=== PATIENT | male | born 1960 | race Caucasian/White ===

== ENCOUNTER 2019-05-28 11:38 | Inpatient (IN) | payer MEDICAID ==
[~2019-05-28] VITALS: Ht 172.7 cm; Wt 57.8 kg
[~2019-05-28 11:38] MED LIST: ASPI-556 PO; ATEN25TA PO; FLUP10 PO; PALI234D IM; TRIH5TAB2 PO
[2019-05-28] MEDS ORDERED: TRIH5TAB2 PO (14:10)
[2019-05-28] MEDS ORDERED: DIVA-76 PO (14:10)
[2019-05-28 14:36] VITALS: BP 129/90
[2019-05-28 16:28] VITALS: BP 130/86
[2019-05-28] MEDS: LORazepam 1 MG TABLET PO PRN ×2 (16:31→21:01)
[2019-05-28] MEDS: HALOPERIDOL 5 MG TABLET PO PRN ×2 (16:31→21:01)
[2019-05-28] MEDS ORDERED: PNEUMOCOCCAL VACCINE POLYVALENT 0.5 ML VIAL [PPSV23] IM ONE (19:30)
[2019-05-28] MEDS ORDERED: INFLUENZA VIRUS VACCINE QVS 2019-20 (3YR+)/PF 60 MCG/0.5 ML SYRINGE IM ONE (19:30)
[2019-05-28] MEDS ORDERED: ONDANSETRON HCL 4 MG TABLET PO PRN (21:15)
[2019-05-28] MEDS ORDERED: LOPERAMIDE HCL 2 MG CAPSULE PO PRN (21:15)
[2019-05-28] MEDS ORDERED: NICOTINE 14 MG/24 HOUR PATCH TD PRN (21:15)
[2019-05-28] MEDS ORDERED: CloNIDine HCL 0.1 MG TABLET PO PRN (21:15)
[2019-05-28] MEDS ORDERED: PETROLATUM,WHITE 28 GM JELLY TP PRN (21:15)
[2019-05-28] MEDS ORDERED: MAGNESIUM HYDROXIDE SUSPENSION 30 ML UDCUP PO PRN (21:15)
[2019-05-28] MEDS ORDERED: ACETAMINOPHEN 325 MG TABLET PO PRN (21:15)
[2019-05-28] MEDS ORDERED: MAG HYDROX/AL HYDROX/SIMETH ES 30 ML SUSPENSION UDCUP PO PRN (21:15)
[2019-05-28] MEDS ORDERED: GuaiFENesin/D-METHORPHAN [SUGAR-FREE] 200-20MG/10 ML SYRUP UDCUP PO PRN (21:15)
[2019-05-28] MEDS ORDERED: DOCUSATE SODIUM 100 MG CAPSULE PO PRN (21:15)
[2019-05-28] MEDS ORDERED: ALBUTEROL SULFATE HFA 90 MCG/PUFF 8 GM INHALER IH PRN (21:15)
[2019-05-29 05:33] VITALS: BP 108/65
[2019-05-29] MEDS: HALOPERIDOL 5 MG TABLET PO PRN ×2 (06:44→10:44)
[2019-05-29] MEDS: LORazepam 1 MG TABLET PO PRN ×4 (06:44→20:46)
[2019-05-29 08:41] VITALS: BP 117/77
[2019-05-29] MEDS: FluPHENAZine HCL 5 MG TABLET PO SCH ×2 (12:22→16:22)
[2019-05-29] MEDS: TRIHEXYPHENIDYL HCL 5 MG TABLET PO SCH ×2 (12:22→16:22)
[2019-05-29 16:10] VITALS: BP 116/68
[2019-05-29] MEDS: DIVALPROEX SODIUM 250 MG ER TABLET PO SCH (16:22)
[2019-05-29] MEDS: NICOTINE POLACRILEX 2 MG LOZENGE PO PRN ×2 (16:23→18:43)
[2019-05-29] MEDS: ZOLPIDEM TARTRATE 10 MG TABLET PO PRN (20:46)
[2019-05-30 00:31] VITALS: BP 122/78
[2019-05-30] MEDS: LORazepam 1 MG TABLET PO PRN ×4 (02:38→20:52)
[2019-05-30] MEDS: DIVALPROEX SODIUM 250 MG ER TABLET PO SCH ×2 (08:08→16:24)
[2019-05-30] MEDS: NICOTINE POLACRILEX 2 MG LOZENGE PO PRN ×2 (08:08→16:24)
[2019-05-30] MEDS: TRIHEXYPHENIDYL HCL 5 MG TABLET PO SCH ×3 (08:08→16:24)
[2019-05-30] MEDS: FluPHENAZine HCL 5 MG TABLET PO SCH ×3 (08:08→16:24)
[2019-05-30 08:43] VITALS: BP 102/73
[2019-05-30 16:00] VITALS: BP 113/78
[2019-05-30] MEDS: HALOPERIDOL 5 MG TABLET PO PRN ×2 (16:03→20:52)
[2019-05-30] MEDS: ZOLPIDEM TARTRATE 10 MG TABLET PO PRN (20:52)
[2019-05-31 06:44] VITALS: BP 126/79
[2019-05-31 06:45] VITALS: BP 126/81
[2019-05-31] MEDS: LORazepam 1 MG TABLET PO PRN ×2 (06:47→21:16)
[2019-05-31] MEDS: HALOPERIDOL 5 MG TABLET PO PRN ×2 (06:47→21:16)
[2019-05-31] MEDS: NICOTINE POLACRILEX 2 MG LOZENGE PO PRN ×2 (07:53→21:17)
[2019-05-31 08:00] VITALS: BP 102/70
[2019-05-31] MEDS: DIVALPROEX SODIUM 250 MG ER TABLET PO SCH ×2 (08:52→17:15)
[2019-05-31] MEDS: TRIHEXYPHENIDYL HCL 5 MG TABLET PO SCH ×3 (08:52→17:14)
[2019-05-31] MEDS: FluPHENAZine HCL 5 MG TABLET PO SCH ×3 (08:52→17:14)
[2019-05-31 16:09] VITALS: BP 119/83
[2019-06-01 04:38] VITALS: BP 118/79
[2019-06-01] MEDS: LORazepam 1 MG TABLET PO PRN (05:32)
[2019-06-01 08:00] VITALS: BP 80/60
[2019-06-01] MEDS: FluPHENAZine HCL 5 MG TABLET PO SCH (08:45)
[2019-06-01] MEDS: TRIHEXYPHENIDYL HCL 5 MG TABLET PO SCH ×3 (08:46→17:12)
[2019-06-01] MEDS: DIVALPROEX SODIUM 250 MG ER TABLET PO SCH ×2 (08:46→17:12)
[2019-06-01] MEDS: FluPHENAZine HCL 10 MG TABLET PO SCH ×2 (14:54→17:13)
[2019-06-01 16:09] VITALS: BP 113/71
[2019-06-01] MEDS: NICOTINE POLACRILEX 2 MG LOZENGE PO PRN (20:26)
[2019-06-01] MEDS: ZOLPIDEM TARTRATE 10 MG TABLET PO PRN (20:26)
[2019-06-02 04:43] VITALS: BP 109/78
[2019-06-02] MEDS: LORazepam 1 MG TABLET PO PRN ×2 (04:50→12:55)
[2019-06-02] MEDS: DIVALPROEX SODIUM 250 MG ER TABLET PO SCH ×2 (08:31→16:19)
[2019-06-02] MEDS: TRIHEXYPHENIDYL HCL 5 MG TABLET PO SCH ×3 (08:31→16:20)
[2019-06-02] MEDS: HALOPERIDOL 5 MG TABLET PO PRN (08:31)
[2019-06-02] MEDS: FluPHENAZine HCL 10 MG TABLET PO SCH ×3 (08:31→16:19)
[2019-06-02 08:43] VITALS: BP 101/65
[2019-06-02 16:17] VITALS: BP 105/58
[2019-06-02] MEDS: ZOLPIDEM TARTRATE 10 MG TABLET PO PRN (20:30)
[2019-06-03 00:32] VITALS: BP 97/67
[2019-06-03] MEDS: NICOTINE POLACRILEX 2 MG LOZENGE PO PRN ×3 (01:06→17:57)
[2019-06-03] MEDS: LORazepam 1 MG TABLET PO PRN ×2 (05:02→16:05)
[2019-06-03 08:31] VITALS: BP 112/71
[2019-06-03] MEDS: FluPHENAZine HCL 10 MG TABLET PO SCH ×3 (08:39→16:05)
[2019-06-03] MEDS: TRIHEXYPHENIDYL HCL 5 MG TABLET PO SCH ×3 (08:39→16:05)
[2019-06-03] MEDS: DIVALPROEX SODIUM 250 MG ER TABLET PO SCH ×2 (08:40→16:05)
[2019-06-03 16:20] VITALS: BP 115/77
[2019-06-03] MEDS: HALOPERIDOL 5 MG TABLET PO PRN (17:05)
[2019-06-04 03:51] VITALS: BP 105/65
[2019-06-04] MEDS: IBUPROFEN 400 MG TABLET PO PRN (03:58)
[2019-06-04] MEDS: LORazepam 1 MG TABLET PO PRN ×2 (03:58→16:29)
[2019-06-04 08:04] VITALS: BP 110/75
[2019-06-04 08:27] LABS: BASOPHILS % (AUTO) 0.6 % (0.0-2.0); EOSINOPHILS % (AUTO) 5.3 % (1.0-6.0); HEMATOCRIT 35.6 % (41-53); HEMOGLOBIN 12.6 g/dL (13.5-17.5); LYMPHOCYTES # (AUTO) 1.5 K/uL (1.0-4.8); LYMPHOCYTES % (AUTO) 33.3 % (22.0-44.0); MEAN CORPUSCULAR HEMOGLOBIN 36.7 pg (26.0-34.0); MEAN CORPUSCULAR HGB CONC 35.4 G/dL (31.0-37.0); MEAN CORPUSCULAR VOLUME 104 fL (80-100); MONOCYTES # (AUTO) 0.5 K/uL (0.1-1.0); MONOCYTES % (AUTO) 11.2 % (2.0-9.0); NEUTROPHILS # (AUTO) 2.2 K/uL (1.8-7.7); NEUTROPHILS % (AUTO) 49.6 % (40.0-70.0); PLATELET COUNT (AUTO) 285 K/uL (150-450); RED BLOOD CELL COUNT(AUTO) 3.42 MIL/uL (4.50-5.90); RED CELL DISTRIBUTION WIDTH 13.7 % (11.5-14.5)
[2019-06-04] MEDS: DIVALPROEX SODIUM 250 MG ER TABLET PO SCH ×2 (08:49→16:29)
[2019-06-04] MEDS: FluPHENAZine HCL 10 MG TABLET PO SCH ×3 (08:49→16:29)
[2019-06-04] MEDS: TRIHEXYPHENIDYL HCL 5 MG TABLET PO SCH ×3 (08:49→16:29)
[2019-06-04] MEDS: NICOTINE POLACRILEX 2 MG LOZENGE PO PRN ×2 (09:37→18:18)
[2019-06-04 15:22] LABS: ALANINE AMINOTRANSFERASE 25 U/L (12-78); ALBUMIN 3.8 g/dL (3.4-5.0); ALKALINE PHOSPHATASE 62 U/L (46-116); ANION GAP 8 mmol/L (8-16); ASPARTATE AMINOTRANSFERASE 25 U/L (15-37); BILIRUBIN,TOTAL 0.3 mg/dL (0.1-1.0); CALCIUM, TOTAL 8.3 mg/dL (8.8-10.5); CARBON DIOXIDE 26 mmol/L (22-29); CHLORIDE 90 mmol/L (98-107); CREATININE 0.77 mg/dL (0.60-1.30); GLOMERULAR FILTR. RATE CALC > 60 mL/min (>60); GLUCOSE,RANDOM 83 mg/dL (70-110); POTASSIUM 4.9 mmol/L (3.5-5.1); TOTAL PROTEIN, SERUM 6.9 g/dL (6.4-8.2); UREA NITROGEN, BLOOD 11 mg/dL (7-18)
[2019-06-04 15:46] LABS: SODIUM SERUM 124 mmol/L (136-145)
[2019-06-04 16:13] VITALS: BP 127/77
[2019-06-04] MEDS: SODIUM CHLORIDE 1 GM TABLET PO SCH (16:30)
[2019-06-05 05:46] VITALS: BP 104/69
[2019-06-05] MEDS: LORazepam 1 MG TABLET PO PRN ×2 (06:34→13:29)
[2019-06-05] MEDS: IBUPROFEN 400 MG TABLET PO PRN ×2 (06:35→21:22)
[2019-06-05 08:19] VITALS: BP 113/60
[2019-06-05] MEDS: DIVALPROEX SODIUM 250 MG ER TABLET PO SCH ×2 (08:53→16:08)
[2019-06-05] MEDS: SODIUM CHLORIDE 1 GM TABLET PO SCH ×3 (08:53→16:08)
[2019-06-05] MEDS: TRIHEXYPHENIDYL HCL 5 MG TABLET PO SCH ×3 (08:53→16:08)
[2019-06-05] MEDS: FluPHENAZine HCL 10 MG TABLET PO SCH ×3 (08:53→16:08)
[2019-06-05] MEDS ORDERED: FluPHENAZine DECANOATE 25 MG/ML IM ONE (12:15)
[2019-06-05] MEDS: HALOPERIDOL 5 MG TABLET PO PRN (13:29)
[2019-06-05 16:28] VITALS: BP 122/74
[2019-06-05] MEDS: ZOLPIDEM TARTRATE 10 MG TABLET PO PRN (20:51)
[2019-06-05] MEDS: NICOTINE POLACRILEX 2 MG LOZENGE PO PRN (20:51)
[2019-06-06 02:51] VITALS: BP 102/67
[2019-06-06] MEDS: LORazepam 1 MG TABLET PO PRN (06:25)
[2019-06-06] MEDS: IBUPROFEN 400 MG TABLET PO PRN (06:25)
[2019-06-06 08:00] LABS: BASOPHILS % (AUTO) 0.4 % (0.0-2.0); EOSINOPHILS % (AUTO) 1.8 % (1.0-6.0); HEMOGLOBIN 11.8 g/dL (13.5-17.5); LYMPHOCYTES # (AUTO) 1.5 K/uL (1.0-4.8); LYMPHOCYTES % (AUTO) 19.8 % (22.0-44.0); MEAN CORPUSCULAR HEMOGLOBIN 36.1 pg (26.0-34.0); MEAN CORPUSCULAR HGB CONC 34.8 G/dL (31.0-37.0); MEAN CORPUSCULAR VOLUME 104 fL (80-100); MONOCYTES # (AUTO) 0.7 K/uL (0.1-1.0); MONOCYTES % (AUTO) 9.4 % (2.0-9.0); NEUTROPHILS # (AUTO) 5.1 K/uL (1.8-7.7); NEUTROPHILS % (AUTO) 68.6 % (40.0-70.0); PLATELET COUNT (AUTO) 287 K/uL (150-450); RED BLOOD CELL COUNT(AUTO) 3.27 MIL/uL (4.50-5.90); RED CELL DISTRIBUTION WIDTH 13.4 % (11.5-14.5)
[2019-06-06 08:09] VITALS: BP 106/72
[2019-06-06] MEDS: SODIUM CHLORIDE 1 GM TABLET PO SCH ×3 (08:13→17:00)
[2019-06-06] MEDS: DIVALPROEX SODIUM 250 MG ER TABLET PO SCH (08:13)
[2019-06-06] MEDS: TRIHEXYPHENIDYL HCL 5 MG TABLET PO SCH ×3 (08:13→17:00)
[2019-06-06] MEDS: FluPHENAZine HCL 10 MG TABLET PO SCH ×3 (08:13→17:00)
[2019-06-06 08:19] LABS: ALANINE AMINOTRANSFERASE 23 U/L (12-78); ALBUMIN 3.6 g/dL (3.4-5.0); ALKALINE PHOSPHATASE 53 U/L (46-116); ASPARTATE AMINOTRANSFERASE 16 U/L (15-37); BILIRUBIN,TOTAL 0.3 mg/dL (0.1-1.0); CALCIUM, TOTAL 8.2 mg/dL (8.8-10.5); CARBON DIOXIDE 29 mmol/L (22-29); CHLORIDE 87 mmol/L (98-107); CREATININE 0.71 mg/dL (0.60-1.30); GLOMERULAR FILTR. RATE CALC > 60 mL/min (>60); GLUCOSE,RANDOM 106 mg/dL (70-110); POTASSIUM 4.3 mmol/L (3.5-5.1); TOTAL PROTEIN, SERUM 6.6 g/dL (6.4-8.2); UREA NITROGEN, BLOOD 10 mg/dL (7-18); VALPROIC ACID 22 mcg/mL (50-100)
[2019-06-06 08:36] LABS: ANION GAP 4 mmol/L (8-16); SODIUM SERUM 120 mmol/L (136-145)
[2019-06-06] MEDS ORDERED: FLUP10 PO (10:39)
[2019-06-06] MEDS ORDERED: NACL1 PO (10:39)
[2019-06-06] MEDS ORDERED: HALO5TAB2 PO (10:39)
[2019-06-06] MEDS ORDERED: LORA-1000 PO (10:39)
[2019-06-06] MEDS ORDERED: NICO2GUM PO (10:39)
[2019-06-06] MEDS ORDERED: CLON0.2T2 PO (10:39)
[2019-06-06] MEDS ORDERED: ZOLP10TA7 PO (10:39)
== END 2019-06-06 19:56 | disposition short-term general hospital (02) | DRG 750 ==
LOC: B3A 14:34
PROVIDERS: ADMIT Psychiatry & Neurology Psychiatry; ATTEND Psychiatry & Neurology Psychiatry
DX: F20.0 Paranoid schizophrenia (principal); E87.1 Hypo-osmolality and hyponatremia; I10 Essential (primary) hypertension; F19.10 Other psychoactive substance abuse, uncomplicated; J44.9 Chronic obstructive pulmonary disease, unspecified; K21.9 Gastro-esophageal reflux disease without esophagitis; Z91.19 Patient's noncompliance with other medical treatment and regimen; Z28.21 Immunization not carried out because of patient refusal; Z79.899 Other long term (current) drug therapy; Z71.51 Drug abuse counseling and surveillance of drug abuser
CPT/HCPCS: J2680

== ENCOUNTER 2019-06-06 09:49 | Inpatient (IN) | payer MEDICAID, OTHER ==
[~2019-06-06] VITALS: Ht 182.9 cm; Wt 60.9 kg
[~2019-06-06 09:49] MED LIST changes: -ASPI-556 PO; -ATEN25TA PO; +DIVA-76 PO; -FLUP10 PO
[2019-06-06] MEDS ORDERED: FLUP10 PO (10:39)
[2019-06-06] MEDS ORDERED: NACL1 PO (10:39)
[2019-06-06] MEDS ORDERED: LORA-1000 PO (10:39)
[2019-06-06] MEDS ORDERED: NICO2GUM PO (10:39)
[2019-06-06] MEDS ORDERED: ZOLP10TA7 PO (10:39)
[2019-06-06] MEDS ORDERED: HALO5TAB2 PO (10:39)
[2019-06-06] MEDS ORDERED: CLON0.2T2 PO (10:39)
[2019-06-06 10:48] LABS: BASOPHILS % (AUTO) 0.6 % (0.0-2.0); EOSINOPHILS % (AUTO) 1.7 % (1.0-6.0); HEMATOCRIT 32.5 % (41-53); HEMOGLOBIN 11.5 g/dL (13.5-17.5); LYMPHOCYTES # (AUTO) 1.8 K/uL (1.0-4.8); LYMPHOCYTES % (AUTO) 30.1 % (22.0-44.0); MEAN CORPUSCULAR HEMOGLOBIN 36.6 pg (26.0-34.0); MEAN CORPUSCULAR HGB CONC 35.4 G/dL (31.0-37.0); MEAN CORPUSCULAR VOLUME 103 fL (80-100); MONOCYTES # (AUTO) 0.5 K/uL (0.1-1.0); MONOCYTES % (AUTO) 7.8 % (2.0-9.0); NEUTROPHILS # (AUTO) 3.5 K/uL (1.8-7.7); NEUTROPHILS % (AUTO) 59.8 % (40.0-70.0); PLATELET COUNT (AUTO) 279 K/uL (150-450); RED BLOOD CELL COUNT(AUTO) 3.14 MIL/uL (4.50-5.90); RED CELL DISTRIBUTION WIDTH 13.5 % (11.5-14.5)
[2019-06-06 11:11] LABS: ALANINE AMINOTRANSFERASE 27 U/L (12-78); ALBUMIN 3.3 g/dL (3.4-5.0); ALKALINE PHOSPHATASE 61 U/L (46-116); ANION GAP 4 mmol/L (8-16); ASPARTATE AMINOTRANSFERASE 17 U/L (15-37); BILIRUBIN,TOTAL 0.3 mg/dL (0.1-1.0); CALCIUM, TOTAL 8.5 mg/dL (8.8-10.5); CARBON DIOXIDE 29 mmol/L (22-29); CHLORIDE 90 mmol/L (98-107); CREATININE 0.74 mg/dL (0.60-1.30); FREE T4 (FREE THYROXINE) 1.02 ng/dL (0.76-1.46); GLOMERULAR FILTR. RATE CALC > 60 mL/min (>60); GLUCOSE,RANDOM 102 mg/dL (70-110); POTASSIUM 4.1 mmol/L (3.5-5.1); THYROID STIMULATING HORMONE 1.01 uIU/mL (0.36-3.74); TOTAL PROTEIN, SERUM 6.1 g/dL (6.4-8.2); UREA NITROGEN, BLOOD 10 mg/dL (7-18); VALPROIC ACID 24 mcg/mL (50-100)
[2019-06-06 11:13] LABS: SODIUM SERUM 123 mmol/L (136-145)
[2019-06-06 11:37] LABS: APPEARANCE,URINE CLEAR (CLEAR); BILIRUBIN,URINE NEGATIVE (NEGATIVE); GLUCOSE, URINE (UA) NEGATIVE (NEGATIVE); KETONES,URINE NEGATIVE (NEGATIVE); LEUKOCYTE ESTERASE ,URINE NEGATIVE (NEGATIVE); NITRATE,URINE NEGATIVE (NEGATIVE); OCCULT BLOOD,URINE NEGATIVE (NEGATIVE); PROTEIN,URINE NEGATIVE (NEGATIVE); UROBILINOGEN,URINE 0.2 mg/dL (<=1.0)
[2019-06-06 11:37] LABS: OSMOLALITY 261 mOS/kg (270-310)
[2019-06-06 11:43] LABS: AMPHET/METH SCREEN,URINE NEGATIVE (NEGATIVE); BARBITURATE SCREEN, URINE NEGATIVE (NEGATIVE); BENZODIAZEPINES SCREEN,URINE NEGATIVE (NEGATIVE); CANNABINOID SCREEN,URINE NEGATIVE (NEGATIVE); COCAINE SCREEN,URINE NEGATIVE (NEGATIVE); METHADONE SCREEN, URINE NEGATIVE (NEGATIVE); OPIATE SCREEN,URINE NEGATIVE (NEGATIVE)
[2019-06-06 11:44] LABS: PHENCYCLIDINE SCREEN,URINE NEGATIVE (NEGATIVE)
[2019-06-06 11:53] LABS: BACTERIA,URINE None Seen /HPF (None Seen); RBC,URINE None Seen /HPF (0-2); WBC,URINE None Seen /HPF (0-5)
[2019-06-06] MEDS ORDERED: 0.9% SODIUM CHLORIDE 10 ML SYRINGE IVP PRN (12:30)
[2019-06-06] MEDS ORDERED: ACETAMINOPHEN 325 MG TABLET PO PRN ×2 (12:30)
[2019-06-06] MEDS ORDERED: ALBUTEROL SULFATE 2.5 MG/0.5 ML NEB SOLUTION NEB PRN (12:45)
[2019-06-06 13:25] LABS: SODIUM,URINE RANDOM 8 mmol/l (20-110)
[2019-06-06 13:33] LABS: OSMOLALITY,URINE 73 mOS/kg (50-1200)
[2019-06-06] MEDS: NICOTINE 21 MG/24 HOUR PATCH TD SCH (14:35)
[2019-06-06] MEDS: FluPHENAZine HCL 10 MG TABLET PO SCH ×2 (15:30→21:26)
[2019-06-06] MEDS: TRIHEXYPHENIDYL HCL 5 MG TABLET PO SCH ×2 (15:30→21:26)
[2019-06-06] MEDS ORDERED: DEXTROSE 5%-WATER 1,000 ML IV ONE (16:15)
[2019-06-06 19:43] VITALS: BP 93/62
[2019-06-06] MEDS ORDERED: INFLUENZA VIRUS VACCINE QVS 2019-20 (3YR+)/PF 60 MCG/0.5 ML SYRINGE IM ONE (20:45)
[2019-06-06] MEDS: HEPARIN SODIUM,PORCINE 5,000 UNITS/ML VIAL SQ SCH (21:00)
[2019-06-06] MEDS: DOCUSATE SODIUM 100 MG CAPSULE PO SCH (21:25)
[2019-06-06] MEDS: LORazepam 1 MG TABLET PO PRN (21:25)
[2019-06-06 23:50] VITALS: BP 102/68
[2019-06-07 04:30] VITALS: BP 105/78
[2019-06-07 07:54] VITALS: BP 106/74
[2019-06-07] MEDS ORDERED: DEXTROSE 5%-WATER 1,000 ML IV SCH (08:24)
[2019-06-07] MEDS: FAMOTIDINE 20 MG TABLET PO SCH (08:48)
[2019-06-07] MEDS: HEPARIN SODIUM,PORCINE 5,000 UNITS/ML VIAL SQ SCH ×2 (08:48→20:23)
[2019-06-07] MEDS: TRIHEXYPHENIDYL HCL 5 MG TABLET PO SCH ×2 (08:48→20:29)
[2019-06-07] MEDS: LORazepam 1 MG TABLET PO PRN (08:48)
[2019-06-07] MEDS: DOCUSATE SODIUM 100 MG CAPSULE PO SCH ×2 (08:49→20:23)
[2019-06-07] MEDS: FluPHENAZine HCL 10 MG TABLET PO SCH ×2 (08:49→20:28)
[2019-06-07] MEDS: NICOTINE 21 MG/24 HOUR PATCH TD SCH (09:00)
[2019-06-07 11:29] VITALS: BP 110/76
[2019-06-07 15:11] VITALS: BP 100/78
[2019-06-07 20:00] VITALS: BP 132/90
[2019-06-08 04:00] VITALS: BP 106/76
[2019-06-08 07:22] VITALS: BP 117/86
[2019-06-08] MEDS: TRIHEXYPHENIDYL HCL 5 MG TABLET PO SCH ×3 (09:46→20:46)
[2019-06-08] MEDS: DOCUSATE SODIUM 100 MG CAPSULE PO SCH ×2 (09:46→20:46)
[2019-06-08] MEDS: FAMOTIDINE 20 MG TABLET PO SCH (09:46)
[2019-06-08] MEDS: FluPHENAZine HCL 10 MG TABLET PO SCH ×3 (09:47→20:46)
[2019-06-08] MEDS: HEPARIN SODIUM,PORCINE 5,000 UNITS/ML VIAL SQ SCH ×2 (09:48→20:46)
[2019-06-08] MEDS: NICOTINE 21 MG/24 HOUR PATCH TD SCH (09:49)
[2019-06-08 11:10] VITALS: BP 117/81
[2019-06-08 15:10] VITALS: BP_SYST 120; BP_SYST 154; BP_DIAS 70; BP_DIAS 76
[2019-06-08] MEDS: LORazepam 1 MG TABLET PO PRN (16:02)
[2019-06-08 20:00] VITALS: BP 116/72
[2019-06-08 23:18] VITALS: BP 120/82
[2019-06-09 04:32] VITALS: BP 112/81
[2019-06-09] MEDS: DOCUSATE SODIUM 100 MG CAPSULE PO SCH (08:14)
[2019-06-09] MEDS: FluPHENAZine HCL 10 MG TABLET PO SCH ×2 (08:14→16:21)
[2019-06-09] MEDS: TRIHEXYPHENIDYL HCL 5 MG TABLET PO SCH ×2 (08:14→16:20)
[2019-06-09] MEDS: FAMOTIDINE 20 MG TABLET PO SCH (08:14)
[2019-06-09] MEDS: NICOTINE 21 MG/24 HOUR PATCH TD SCH (08:15)
[2019-06-09 08:28] VITALS: BP 95/55
[2019-06-09] MEDS: HEPARIN SODIUM,PORCINE 5,000 UNITS/ML VIAL SQ SCH (09:00)
[2019-06-09 11:54] VITALS: BP 122/79
[2019-06-09] MEDS ORDERED: TRIH5TAB2 PO (16:27)
[2019-06-09 16:35] VITALS: BP 142/93
== END 2019-06-09 18:00 | disposition home or self-care (01) | DRG 426 ==
LOC: EMS 09:49 → 6N 18:10
PROVIDERS: ADMIT Internal Medicine; ATTEND Internal Medicine
DX: E87.1 Hypo-osmolality and hyponatremia (principal); E43 Unspecified severe protein-calorie malnutrition; J44.9 Chronic obstructive pulmonary disease, unspecified; I10 Essential (primary) hypertension; R63.1 Polydipsia; F20.9 Schizophrenia, unspecified; F41.9 Anxiety disorder, unspecified; K21.9 Gastro-esophageal reflux disease without esophagitis; F17.210 Nicotine dependence, cigarettes, uncomplicated; Z28.21 Immunization not carried out because of patient refusal; Z68.1 Body mass index [BMI] 19.9 or less, adult
CPT/HCPCS: 83735; 83930; 83935; 84100; 84295; 84300; 84439; 84443; 87081; G0480; J1644; J7060

== ENCOUNTER 2024-02-13 15:50 | Inpatient (IN) | payer MEDICAID, OTHER ==
[~2024-02-13] VITALS: Ht 172.7 cm; Wt 59.0 kg
[~2024-02-13 15:50] MED LIST changes: -DIVA-76 PO; +FLUP10TA28 PO; -PALI234D IM; -TRIH5TAB2 PO; +TRIH5TAB4 PO
[2024-02-13 17:27] LABS: COVID AG,FIA SOURCE NASAL SWAB
[2024-02-13 17:28] LABS: BASOPHILS % (AUTO) 0.7 % (0.0-2.0); EOSINOPHILS % (AUTO) 1.2 % (1.0-6.0); HEMATOCRIT 35.1 % (41-53); HEMOGLOBIN 11.8 g/dL (13.5-17.5); LYMPHOCYTES # (AUTO) 1.4 K/uL (1.0-4.8); LYMPHOCYTES % (AUTO) 16.5 % (22.0-44.0); MEAN CORPUSCULAR HEMOGLOBIN 32.4 pg (26.0-34.0); MEAN CORPUSCULAR HGB CONC 33.6 G/dL (31.0-37.0); MEAN CORPUSCULAR VOLUME 97 fL (80-100); MONOCYTES # (AUTO) 0.8 K/uL (0.1-1.0); MONOCYTES % (AUTO) 10.3 % (2.0-9.0); NEUTROPHILS # (AUTO) 5.9 K/uL (1.8-7.7); NEUTROPHILS % (AUTO) 71.3 % (40.0-70.0); PLATELET COUNT (AUTO) 419 K/uL (150-450); RED BLOOD CELL COUNT(AUTO) 3.63 MIL/uL (4.50-5.90); RED CELL DISTRIBUTION WIDTH 14.6 % (11.5-14.5); WHITE BLOOD COUNT (AUTO) 8.2 K/uL (4.5-11.0)
[2024-02-13 17:40] LABS: ANION GAP 8 mmol/L (8-16); CALCIUM, TOTAL 8.6 mg/dL (8.8-10.5); CARBON DIOXIDE 28 mmol/L (22-29); CHLORIDE 97 mmol/L (98-107); CREATININE 0.74 mg/dL (0.60-1.30); GLOMERULAR FILTR. RATE CALC > 60 mL/min (>60); GLUCOSE,RANDOM 93 mg/dL (70-110); POTASSIUM 3.7 mmol/L (3.5-5.1); SODIUM SERUM 133 mmol/L (136-145); UREA NITROGEN, BLOOD 10 mg/dL (7-18)
[2024-02-13 17:49] LABS: SARS-COV2 (COVID) ANTIGEN,FIA Negative (Negative)
[2024-02-13] MEDS ORDERED: CHOL25TA4 PO (18:03)
[2024-02-13] MEDS ORDERED: ESCI20TA87 PO (18:03)
[2024-02-13] MEDS ORDERED: PANT-31 PO (18:03)
[2024-02-13] MEDS ORDERED: METO25 PO (18:03)
[2024-02-13] MEDS ORDERED: CALC-613 PO (18:03)
[2024-02-13] MEDS ORDERED: BENZ100C68 PO (18:03)
[2024-02-13] MEDS ORDERED: QUET200T PO (18:03)
[2024-02-13] MEDS ORDERED: LOSA-381 PO (18:03)
[2024-02-13] MEDS ORDERED: ASPI81TA87 PO (18:03)
[2024-02-13] MEDS ORDERED: DIVA-153 PO (18:03)
[2024-02-13] MEDS ORDERED: ATOR40TA71 PO (18:03)
[2024-02-13 18:05] LABS: ALCOHOL, BLOOD (SERUM) < 3 mg/dL (0-10)
[2024-02-14 00:11] LABS: APPEARANCE,URINE HAZY (CLEAR); BILIRUBIN,URINE NEGATIVE (NEGATIVE); COLOR,URINE LIGHT YELLOW (YELLOW); GLUCOSE, URINE (UA) NEGATIVE (NEGATIVE); KETONES,URINE NEGATIVE (NEGATIVE); LEUKOCYTE ESTERASE ,URINE LARGE (NEGATIVE); NITRATE,URINE NEGATIVE (NEGATIVE); OCCULT BLOOD,URINE TRACE (NEGATIVE); PH,URINE 6.5 (5.0-8.0); PH,URINE DRUG SCREEN 6.5 (5.0-8.0); PROTEIN,URINE NEGATIVE (NEGATIVE); SPECIFIC GRAVITIY, URINE 1.009 (1.003-1.030); UROBILINOGEN,URINE <=1.0 mg/dL (<=1.0)
[2024-02-14 00:21] LABS: ALCOHOL, URINE DRUG SCREEN NEGATIVE (NEGATIVE); AMPHET/METH SCREEN,URINE NEGATIVE (NEGATIVE); BARBITURATE SCREEN, URINE NEGATIVE (NEGATIVE); BENZODIAZEPINES SCREEN,URINE NEGATIVE (NEGATIVE); CANNABINOID SCREEN,URINE NEGATIVE (NEGATIVE); COCAINE SCREEN,URINE NEGATIVE (NEGATIVE); METHADONE SCREEN, URINE NEGATIVE (NEGATIVE); OPIATE SCREEN,URINE NEGATIVE (NEGATIVE); PHENCYCLIDINE SCREEN,URINE NEGATIVE (NEGATIVE)
[2024-02-14 00:27] LABS: BACTERIA,URINE Moderate /HPF (None Seen); RBC,URINE 0-2 /HPF (0-2); SQUAMOUS EPITHELIAL CELL,UR Few /LPF (None Seen)
[2024-02-14] MEDS: HALOPERIDOL 5 MG TABLET PO PRN (17:41)
[2024-02-14] MEDS: CEPHALEXIN MONOHYDRATE 500 MG CAPSULE PO ONE (17:41)
[2024-02-14] MEDS: ZOLPIDEM TARTRATE 10 MG TABLET PO PRN (23:23)
[2024-02-14] MEDS: LORazepam 2 MG TABLET PO PRN (23:24)
[2024-02-15 20:40] VITALS: BP 131/90; PULSE 102; RESP 18; TEMP 98.7; O2SAT 96
[2024-02-15 21:00] VITALS: BP 131/90; PULSE 102; RESP 18; TEMP 98.7; O2SAT 96
[2024-02-16] MEDS ORDERED: PNEUMOCOCCAL VACCINE POLYVALENT 0.5 ML SYRINGE [PPSV23] IM. ONE (02:00)
[2024-02-16] MEDS ORDERED: INFLUENZA VIRUS VACCINE TVS (6MO+) 2024-25/PF 45 MCG/0.5 ML SYRINGE IM. ONE (02:00)
[2024-02-16 08:15] VITALS: BP 148/90; PULSE 90; RESP 18; TEMP 97.7
[2024-02-16] MEDS: ATORVASTATIN CALCIUM 40 MG TABLET PO SCH (08:26)
[2024-02-16] MEDS: METOPROLOL TARTRATE 25 MG TABLET PO SCH (08:26)
[2024-02-16] MEDS: LORATADINE 10 MG TABLET PO SCH (08:26)
[2024-02-16] MEDS: CHOLECALCIFEROL (VIT D3) 1,000 UNITS [25 MCG] TABLET PO SCH (08:26)
[2024-02-16] MEDS: DOCUSATE SODIUM 100 MG CAPSULE PO SCH (08:34)
[2024-02-16] MEDS: CEPHALEXIN MONOHYDRATE 500 MG CAPSULE PO SCH (13:00)
[2024-02-16] MEDS: DIVALPROEX SODIUM 500 MG ER TABLET PO SCH (16:38)
[2024-02-16 21:21] VITALS: RESP 18
[2024-02-16] MEDS: QUEtiapine FUMARATE 300 MG TABLET PO SCH (21:38)
[2024-02-16] MEDS: MELATONIN 5 MG TABLET PO SCH (21:38)
[2024-02-17] MEDS: ESCITALOPRAM OXALATE 20 MG TABLET PO SCH (08:19)
[2024-02-17 08:40] VITALS: TEMP 98
[2024-02-17] MEDS: ETHYL ALCOHOL 62% ANTISEPTIC NASAL SANITIZER 0.6 ML AMPUL NASAL SCH (09:56)
[2024-02-17 21:43] VITALS: RESP 18
[2024-02-18 09:45] VITALS: BP 128/88; PULSE 107; RESP 17; TEMP 97.3; O2SAT 96
[2024-02-18 20:35] VITALS: BP 129/84; PULSE 101; RESP 18; TEMP 98.4; O2SAT 95
[2024-02-19 08:01] VITALS: BP 122/86; PULSE 84; RESP 18; TEMP 98; O2SAT 96
[2024-02-19] MEDS ORDERED: CEPH-558 PO (11:36)
== END 2024-02-19 18:10 | DRG 750 ==
LOC: EMS 15:50 → ICUN 02-15 22:59 → 3EI 02-15 23:05
PROVIDERS: ADMIT Psychiatry & Neurology Child & Adolescent Psychiatry; ATTEND Psychiatry & Neurology Child & Adolescent Psychiatry
PROC: GZ56ZZZ Individual Psychotherapy, Supportive (ICD-10-PCS; principal; 2024-02-16)
DX: F25.0 Schizoaffective disorder, bipolar type (principal); E44.0 Moderate protein-calorie malnutrition; E87.1 Hypo-osmolality and hyponatremia; D64.9 Anemia, unspecified; Z20.822 Contact with and (suspected) exposure to COVID-19; J44.9 Chronic obstructive pulmonary disease, unspecified; K21.9 Gastro-esophageal reflux disease without esophagitis; I10 Essential (primary) hypertension; Z68.1 Body mass index [BMI] 19.9 or less, adult; Z87.891 Personal history of nicotine dependence
CPT/HCPCS: 80048; 80307; 81001; 85025; 87081; 87086; 87186; 99285; G0480

== ENCOUNTER 2024-08-30 11:31 | Emergency (ER) | payer MEDICAID, OTHER ==
[~2024-08-30] VITALS: Ht 175.3 cm; Wt 59.0 kg
[~2024-08-30 11:31] MED LIST changes: +ATOR40TA71 PO; +CEPH-558 PO; +CHOL25TA4 PO; +DIVA-153 PO; +ESCI20TA87 PO; -FLUP10TA28 PO; +METO25 PO; +QUET200T PO
[2024-08-30 11:44] VITALS: TEMP 98.9
[2024-08-30] MEDS ORDERED: SULF-261 PO (11:59)
[2024-08-30] MEDS ORDERED: ASPI-1450 PO (11:59)
[2024-08-30] MEDS ORDERED: MELA3TAB89 PO (12:09)
[2024-08-30] MEDS ORDERED: SENN-376 PO (12:09)
[2024-08-30] MEDS ORDERED: RISP4TAB94 PO (12:09)
[2024-08-30] MEDS ORDERED: NICO-703 TD (12:09)
[2024-08-30] MEDS ORDERED: FERR325T27 PO (12:09)
[2024-08-30] MEDS ORDERED: DIVA125C20 PO (12:09)
[2024-08-30] MEDS ORDERED: MULT-1303 PO (12:09)
[2024-08-30] MEDS ORDERED: LORA10TA7 PO (12:09)
[2024-08-30 12:54] LABS: BASOPHILS % (AUTO) 1.1 % (0.0-2.0); EOSINOPHILS % (AUTO) 0.8 % (1.0-6.0); HEMATOCRIT 35.2 % (41-53); HEMOGLOBIN 11.8 g/dL (13.5-17.5); LYMPHOCYTES # (AUTO) 1.4 K/uL (1.0-4.8); LYMPHOCYTES % (AUTO) 12.8 % (22.0-44.0); MEAN CORPUSCULAR HEMOGLOBIN 31.5 pg (26.0-34.0); MEAN CORPUSCULAR HGB CONC 33.4 G/dL (31.0-37.0); MEAN CORPUSCULAR VOLUME 94 fL (80-100); MONOCYTES # (AUTO) 0.8 K/uL (0.1-1.0); MONOCYTES % (AUTO) 7.7 % (2.0-9.0); NEUTROPHILS # (AUTO) 8.3 K/uL (1.8-7.7); NEUTROPHILS % (AUTO) 77.6 % (40.0-70.0); PLATELET COUNT (AUTO) 469 K/uL (150-450); RED BLOOD CELL COUNT(AUTO) 3.74 MIL/uL (4.50-5.90); RED CELL DISTRIBUTION WIDTH 16.3 % (11.5-14.5); WHITE BLOOD COUNT (AUTO) 10.7 K/uL (4.5-11.0)
[2024-08-30 13:05] LABS: ANION GAP 5 mmol/L (8-16); CALCIUM, TOTAL 8.6 mg/dL (8.8-10.5); CARBON DIOXIDE 28 mmol/L (22-29); CHLORIDE 92 mmol/L (98-107); CREATININE 0.52 mg/dL (0.60-1.30); GLOMERULAR FILTR. RATE CALC > 60 mL/min (>60); GLUCOSE,RANDOM 94 mg/dL (70-110); POTASSIUM 3.9 mmol/L (3.5-5.1); SODIUM SERUM 125 mmol/L (136-145); UREA NITROGEN, BLOOD 9 mg/dL (7-18)
[2024-08-30 13:08] LABS: ALCOHOL, BLOOD (SERUM) < 3 mg/dL (0-10)
[2024-08-30 13:10] LABS: COVID AG,FIA SOURCE NASAL SWAB
[2024-08-30 13:28] LABS: APPEARANCE,URINE CLEAR (CLEAR); BILIRUBIN,URINE NEGATIVE (NEGATIVE); COLOR,URINE LIGHT YELLOW (YELLOW); GLUCOSE, URINE (UA) NEGATIVE (NEGATIVE); KETONES,URINE NEGATIVE (NEGATIVE); LEUKOCYTE ESTERASE ,URINE NEGATIVE (NEGATIVE); NITRATE,URINE NEGATIVE (NEGATIVE); OCCULT BLOOD,URINE NEGATIVE (NEGATIVE); PH,URINE 6.5 (5.0-8.0); PH,URINE DRUG SCREEN 6.5 (5.0-8.0); PROTEIN,URINE NEGATIVE (NEGATIVE); SPECIFIC GRAVITIY, URINE 1.013 (1.003-1.030); UROBILINOGEN,URINE <=1.0 mg/dL (<=1.0)
[2024-08-30 13:34] LABS: SARS-COV2 (COVID) ANTIGEN,FIA Negative (Negative)
[2024-08-30 13:34] LABS: ALCOHOL, URINE DRUG SCREEN NEGATIVE (NEGATIVE); AMPHET/METH SCREEN,URINE NEGATIVE (NEGATIVE); BARBITURATE SCREEN, URINE NEGATIVE (NEGATIVE); BENZODIAZEPINES SCREEN,URINE NEGATIVE (NEGATIVE); CANNABINOID SCREEN,URINE NEGATIVE (NEGATIVE); COCAINE SCREEN,URINE NEGATIVE (NEGATIVE); METHADONE SCREEN, URINE NEGATIVE (NEGATIVE); OPIATE SCREEN,URINE NEGATIVE (NEGATIVE); PHENCYCLIDINE SCREEN,URINE NEGATIVE (NEGATIVE)
[2024-08-30 16:00] VITALS: BP 130/87; PULSE 79; RESP 17; O2SAT 96
== END 2024-08-30 16:17 | disposition home or self-care (01) ==
LOC: EMS 11:31
DX: F20.9 Schizophrenia, unspecified (principal); M25.521 Pain in right elbow; E87.1 Hypo-osmolality and hyponatremia; D64.9 Anemia, unspecified; I10 Essential (primary) hypertension; J44.9 Chronic obstructive pulmonary disease, unspecified; F17.210 Nicotine dependence, cigarettes, uncomplicated; F14.90 Cocaine use, unspecified, uncomplicated; Z79.899 Other long term (current) drug therapy; Z20.822 Contact with and (suspected) exposure to COVID-19; Z79.82 Long term (current) use of aspirin; Z86.73 Personal history of transient ischemic attack (TIA), and cerebral infarction without residual deficits; W01.0XXA Fall on same level from slipping, tripping and stumbling without subsequent striking against object, initial encounter; Y93.89 Activity, other specified; Y92.89 Other specified places as the place of occurrence of the external cause; Y99.8 Other external cause status
CPT/HCPCS: 99283; 87426; 80048; 81003; 85025; 36415; 80307; G0480